=== PATIENT | female | born 1950 | race Caucasian/White ===

== ENCOUNTER 2018-01-04 20:07 | Emergency (ER) | payer MEDICARE, BC ==
[2018-01-04] MEDS ORDERED: ASPIRIN 81 MG CHEWABLE TABLET PO ONE (20:20)
--- NOTE | 2018-01-04 20:21 | Emergency Department Record ---
History of Present Illness - General Chief Complaint: Chest Pain Stated Complaint: CHEST PAIN Time Seen by Provider: 01/04/18 20:20 Source: Patient Mode of Arrival: Ambulatory Limitations: No limitations - History of Present Illness Initial Comments: 67 yo female presents to ED for evaluation of nausea symptoms, epigaztric pain, and chest "pressure" symptoms that began last night. Patient reports a history of STEMI in 06/15, was concerned about recurrent heart attack this evening. Patient reports that her symptoms at that time were different and more severe. Patient reports that her symptoms began after eating last night, reports that her appetite has been down for the past several days as well. Patient denies previous abdominal surgery, reports stents x 3 placed 4 years ago. Patient reports that she is taking plavix as well. Patient took full strength ASA prior to arrival. MD Complaint: Other Onset/Timin -: Hour(s) Onset: After eating Pain Location: Epigastric Pain Radiation: None Severity: Moderate Quality: Sharp, Tightness Consistency: Constant Improves With: Nothing Worsens With: Eating Anginal Symptoms: Nausea Other Symptoms: Burping Treatments Prior to Arrival: Aspirin - Related Data On Oral Contraceptives: No Home Medications Medication Instructions Recorded Confirmed Last Taken Fish Oil/Dha/Epa [Fish Oil 1,200 1,200 mg PO DAILY 01/04/18 01/04/18 Unknown mg Fish Oil] Metformin HCl [Metformin HCl ER] 750 mg PO BID 01/04/18 01/04/18 Unknown Allergies Allergy/AdvReac Type Severity Reaction Status Date / Time No Known Drug Allergies Allergy Unverified 07/03/17 11:38 Review of Systems Constitutional: Denies: Chills, Fever, Malaise, Night sweats Eyes: Denies: Eye discharge, Eye pain ENT: Denies: Congestion, Ear pain Respiratory: Denies: Cough, Dyspnea Cardiovascular: Reports: Chest pain. Denies: Dyspnea on exertion Endocrine: Denies: Fatigue, Heat or cold intolerance Gastrointestinal: Reports: Abdominal pain, Nausea. Denies: Constipation, Vomiting Genitourinary: Denies: Incontinence, Retention Musculoskeletal: Denies: Arthralgia, Back pain, Gout, Joint swelling Skin: Denies: Bruising, Change in color Neurological: Denies: Abnormal gait, Confusion, Headache, Seizure Psychiatric: Denies: Anxiety Hematological/Lymphatic: Denies: Anemia, Blood Clots Past Medical History - SOCIAL HISTORY Smoking Status: Never smoker - RESPIRATORY Hx Respiratory Disorders: No - CARDIOVASCULAR Hx Cardio Disorders: Yes Hx Abnormal EKG: Yes Hx Hypertension: Yes - NEURO Hx Neuro Disorders: No - GI Hx GI Disorders: Yes Hx Hepatitis/Jaundice: Yes (as a child) - Hx Genitourinary Disorders: No - ENDOCRINE Hx Endocrine Disorders: Yes Hx Diabetes: Yes (type II) Hx Thyroid Disease: No - MUSCULOSKELETAL Hx Musculoskeletal Disorders: Yes Hx Arthritis: Yes - PSYCH Hx Psych Problems: No - HEMATOLOGY/ONCOLOGY Hx Hematology/Oncology Disorders: No Family Medical History Hx Heart Disease: Father Hx Stroke: Mother Physical Exam - General General Appearance: Alert, Oriented x3, Cooperative, Moderate distress Limitations: No limitations - Head Head exam: Atraumatic, Normocephalic, Normal inspection Head exam detail: negative: Abrasion, Contusion, Laird's sign, General tenderness, Hematoma, Laceration - Eye Eye exam: Normal appearance. negative: Conjunctival injection, Periorbital swelling, Periorbital tenderness, Scleral icterus - ENT Ear exam: negative: Auricular hematoma, Auricular trauma Nasal Exam: negative: Active bleeding, Discharge, Dried blood, Foreign body Mouth exam: negative: Drooling, Laceration, Tongue elevation - Neck Neck exam: Normal inspection. negative: Meningismus, Tenderness - Respiratory Respiratory exam: Normal lung sounds bilaterally. negative: Rales, Respiratory distress, Rhonchi, Stridor - Cardiovascular Cardiovascular Exam: Regular rate, Normal rhythm, Normal heart sounds - GI/Abdominal GI/Abdominal exam: Soft, Tenderness (TTP epigastric/RUQ regions on examination, no rebound, guarding present.). negative: Rebound, Rigid - Rectal Rectal exam: Deferred - exam: Deferred - Extremities Extremities exam: Normal inspection. negative: Tenderness - Back Back exam: Denies: CVA tenderness (R), CVA tenderness (L) - Neurological Neurological exam: Alert, Normal gait, Oriented X3 - Psychiatric Psychiatric exam: Normal affect, Normal mood - Skin Skin exam: Normal color. negative: Abrasion Type of lesion: negative: abrasion Course - Reevaluation(s) Reevaluation #1: 01/04/18 20:20 EKG: NSR 100 Normal axis, normal intervals No acute ST-T wave changes Previous Inferior wall STEMI 06/30/13 Reevaluation #2: 01/04/18 20:52 Laboratory studies were reviewed and are grossly unremarkable except for Glucose 188. CT imaging is ordered to evaluate for possible cholecystitis as US is nota available at [facility]. Reevaluation #3: 01/04/18 22:50 CT Abdomen/Pelvis: Cholelithiasis without cholecystitis Fatty change liver Patient was updated on all results, recommended transfer for further cardiac evaluation given the patient's history. Patient declines transfer for further cardiac evaluation that is recommended by myself, but is willing to stay for repeat Troponin. Will obtain 3-hour troponin to exclude ACS. Patient reports that her symptoms have resolved as well. Reevaluation #4: 01/04/18 23:53 Repeat Troponin reviewed and is normal. Patient requesting to go home at this time, continues to decline transfer for cardiac evaluation. Will discharge patient home at this time. Medical Decision Making - Lab Data Result diagrams: 01/04/18 20:15 01/04/18 20:15 Disposition Disposition: Discharge Clinical Impression: Epigastric pain Disposition: Home, Self-Care Condition: (2) Stable Instructions: Abdominal Pain (ED) Additional Instructions: Return to ED if your symptoms worsen or if you have any concerns. Follow-up with Dr. Elizondo Saturday without fail. Forms: Patient Portal Access Time of Disposition: 23:54 Quality - Quality Measures Quality Measures: N/A - Blood Pressure Screening Does Patient Have Any of the Following: No Blood Pressure Classification: Hypertensive Reading Systolic Measurement: 198 Diastolic Measurement: 103 Screening for High Blood Pressure: < First Hypertensive BP, F/U Documented > [ G8950] First Hypertensive Follow-up Interventions: Referral to alternative/primary care provider.
[2018-01-04] MEDS ORDERED: ONDANSETRON HCL IV 4 MG/2 ML VIAL IVP ONE (20:26)
[2018-01-04 20:29] LABS: HEMATOCRIT 40.2 % (35.0-47.0); MEAN CELL VOLUME 91.6 fl (81-97); MEAN CORPUSCULAR HEMOGLOBIN 31.9 pg (27-33); MEAN CORPUSCULAR HGB CONC 34.8 g/dl (32-36); MEAN PLATELET VOLUME 10.3 fl (7.4-10.4); PLATELET COUNT 156 K/uL (130-400); RED BLOOD COUNT 4.39 M/uL (3.80-5.40); WHITE BLOOD COUNT W/O DIFF 5.6 K/uL (4.2-12.2)
[2018-01-04] MEDS ORDERED: 0.9 % SODIUM CHLORIDE 1000ML 1,000 ML IV SCH (20:30)
[2018-01-04 20:40] LABS: BLOOD UREA NITROGEN 11 mg/dL (8-23); CREATININE 0.6 mg/dL (0.5-0.9); EST GLOMERULAR FILTRATION RATE > 60 mL/min
[2018-01-04 20:41] LABS: PROTHROMBIN TIME (PATIENT) 10.5 SECONDS (9.5-12.1); TOTAL PROTEIN 7.3 g/dL (6.6-8.7)
[2018-01-04 20:43] LABS: GLUCOSE,RANDOM 188 mg/dL (74-109)
[2018-01-04 20:45] LABS: ALB/GLOB RATIO 1.3 (1.1-1.8); ALBUMIN 4.1 g/dL (4.0-5.0); ALKALINE PHOSPHATASE 88 U/L (35-104); ALT/SGPT 26 U/L (<33); AST/SGOT 38 U/L (10.0-35.0)
[2018-01-04 21:38] LABS: URINE APPEARANCE CLEAR; URINE BILIRUBIN NEGATIVE (NEGATIVE); URINE BLOOD NEGATIVE (NEGATIVE); URINE COLOR YELLOW; URINE GLUCOSE (UA) NEGATIVE (NEGATIVE); URINE KETONE 15 mg/dL (NEGATIVE); URINE LEUKOCYTE ESTERASE NEGATIVE (NEGATIVE); URINE NITRITE NEGATIVE (NEGATIVE); URINE PROTEIN NEGATIVE (NEGATIVE)
--- NOTE | 2018-01-06 09:38 | CT SCAN REPORT ---
EXAM: CT OF THE ABDOMEN AND PELVIS WITH IV CONTRAST HISTORY: ABDOMINAL PAIN AND BLOATING. TECHNIQUE: Helical CT scan of the abdomen and pelvis was obtained after the administration of 100 ml of intravenous Omnipaque 300. No oral contrast administered. Comparison: None. FINDINGS: The lung bases show a 10 mm calcified granuloma in the left lower lobe. The liver is mildly enlarged, 22 cm in length and may have mild low density change. Tiny gallstones are present. No abnormal gallbladder wall thickening or pericholecystic fluid. The common bile duct is not dilated, 3 mm. No intrahepatic biliary ductal dilation. The pancreas has a tiny calcification in the pancreatic head, consistent with prior pancreatitis. There is a small calcification in the left adrenal gland. The right adrenal gland is unremarkable. The spleen and kidneys are unremarkable. 1 cm cyst in the lower pole of the right kidney. No renal calculi or hydronephrosis. Bowel has normal caliber. The appendix is normal. The uterus and ovaries have normal size. The urinary bladder is unremarkable. The bony structures show mild degenerative changes of the spine. IMPRESSION: CHOLELITHIASIS. NO EVIDENCE OF CHOLECYSTITIS. JOB NUMBER: [id number] MTDD
== END 2018-01-05 00:01 | disposition home or self-care (01) ==
LOC: ER 20:07
DX: R10.13 Epigastric pain (principal); R07.89 Other chest pain; K80.20 Calculus of gallbladder without cholecystitis without obstruction; R11.0 Nausea; E11.9 Type 2 diabetes mellitus without complications; I10 Essential (primary) hypertension; I25.2 Old myocardial infarction; Z95.5 Presence of coronary angioplasty implant and graft; Z79.84 Long term (current) use of oral hypoglycemic drugs
CPT/HCPCS: 99284 ×2; 96374; 96361; 83690; 85610; 80053; 81003; 84484; 85027; 74177; 93005; 93010; Q9967; J2405; J7030

== ENCOUNTER 2018-01-06 12:42 | Emergency (ER) | payer BC ==
[2018-01-06] MEDS ORDERED: ONDANSETRON HCL IV 4 MG/2 ML VIAL IV ONE (13:08)
[2018-01-06] MEDS ORDERED: 0.9 % SODIUM CHLORIDE 1,000 ML BAG IV ONE (13:08)
--- NOTE | 2018-01-06 13:16 | Emergency Department Record ---
History of Present Illness - General Chief Complaint: Abdominal Pain Stated Complaint: CANT EAT,ABDOMINAL PAIN Time Seen by Provider: 01/06/18 12:43 Source: Patient Mode of Arrival: Ambulatory Limitations: No limitations - History of Present Illness Initial Comments: The patient is here due to a 3-4 day hx of upper abdominal pain with nausea and intermittent vomiting. She states the AP is mainly in the epigastric area and is sharp and stabbing at times. It is worse after eating usually. The patient now is experiencing early satiety and has a decreased appetite. There is no hx of Cp, SOB, CHESTER, or sweating. She was in the ER 2 days ago and did have a neg abdominal CT and lab work. She did have very small gallstones on the CT but no signs of Cholycystitis. Now she is here for an US as she was directed to do. Complaint: Abdominal pain Onset/Timin -: Days(s) Location: Epigastric, Suprapubic Severity scale (1-10): 6 Improves With: Vomiting Worsens With: Nothing Associated Symptoms: Denies other symptoms - Related Data Patient : No Previous Rx's Medication Instructions Recorded Ondansetron [Zofran Odt] 4 mg SL .Q4-6H PRN #12 tab.rapdis 01/06/18 Allergies Allergy/AdvReac Type Severity Reaction Status Date / Time No Known Drug Allergies Allergy Verified 01/06/18 12:58 Travel Screening - Travel/Exposure Within Last 30 Days Have you traveled within the last 30 days?: No - Travel/Exposure Within Last Year Have you traveled outside the [place] in the last year?: No - Additonal Travel Details Have you been exposed to anyone with a communicable illness?: No - Travel Symptoms Symptom Screening: None Review of Systems Constitutional: Denies: Chills, Fever Eyes: Denies: Eye discharge ENT: Denies: Congestion Respiratory: Denies: Cough, Dyspnea Cardiovascular: Denies: Arrhythmia Endocrine: Denies: Fatigue Gastrointestinal: Reports: Abdominal pain, Nausea, Vomiting. Denies: Diarrhea Genitourinary: Denies: Dysuria Musculoskeletal: Denies: Arthralgia Skin: Denies: Bruising Past Medical History - SOCIAL HISTORY Smoking Status: Never smoker Alcohol Use: None Drug Use: None - RESPIRATORY Hx Respiratory Disorders: No - CARDIOVASCULAR Hx Cardio Disorders: Yes Hx Abnormal EKG: Yes Hx Hypertension: Yes - NEURO Hx Neuro Disorders: No - GI Hx GI Disorders: Yes Hx Hepatitis/Jaundice: Yes (as a child) - Hx Genitourinary Disorders: No - ENDOCRINE Hx Endocrine Disorders: Yes Hx Diabetes: Yes (type II) Hx Thyroid Disease: No - MUSCULOSKELETAL Hx Musculoskeletal Disorders: Yes Hx Arthritis: Yes - PSYCH Hx Psych Problems: No - HEMATOLOGY/ONCOLOGY Hx Hematology/Oncology Disorders: No Family Medical History Any Significant Family History?: No Hx Heart Disease: Father Hx Stroke: Mother Physical Exam - General General Appearance: Alert, Oriented x3, Cooperative, No acute distress - Head Head exam: Atraumatic, Normocephalic, Normal inspection - Eye Eye exam: Normal appearance, PERRL - ENT Throat exam: Normal inspection. negative: Tonsillar erythema, Tonsillar exudate - Neck Neck exam: Normal inspection - Respiratory Respiratory exam: Normal lung sounds bilaterally. negative: Respiratory distress - Cardiovascular Cardiovascular Exam: Regular rate, Normal rhythm, Systolic murmur (2/6 CLIFFORD LLSB. ). negative: Normal heart sounds - GI/Abdominal GI/Abdominal exam: Soft, Normal bowel sounds, Tenderness (There is mild epigastric tenderness.). negative: Distended, Guarding, Hypoactive bowel sounds , Rebound, Rigid - Extremities Extremities exam: Normal inspection, Full ROM, Normal capillary refill. negative: Tenderness - Neurological Neurological exam: Alert, Normal gait. negative: Abnormal gait, Motor sensory deficit - Psychiatric Psychiatric exam: negative: Anxious Course Vital Signs 01/06/18 12:51 Temperature 99.0 F Pulse Rate 88 Respiratory 16 Rate Blood Pressure 132/72 Pulse Ox 94 L - Reevaluation(s) Reevaluation #1: The patient is doing a lot better at this time. Her nausea is gone and she is eating and drinking well with no AP. I did explain the lab and US reports to her and the need for F/U with Dr. Thomson. 01/06/18 14:57 Medical Decision Making - Data Complexity MDM Data: Labs Ordered and/or Reviewed, X-Ray Ordered and/or Reviewed, EKG Ordered and/or Reviewed - Lab Data Result diagrams: 01/06/18 13:56 01/06/18 13:56 Lab Results 01/06/18 Range/Units 12:59 POC Glucose 298 H (70-110) mg/dL - EKG Data -: EKG Interpreted by Me EKG: No Acute Changes, Normal EKG, Unchanged From Previous - Radiology Data Radiology results: Report reviewed (US: gallstones with prob fatty liver.) Disposition Disposition: Discharge Clinical Impression: Epigastric pain Disposition: Home, Self-Care Condition: (2) Stable Instructions: Abdominal Pain (ED) Additional Instructions: Please eat a very bland diet and use the Zofran as needed. Please see Dr. Thomson in the Specialty clinic next week. Return to the ER for any worsening symptoms. Please also see your family doctor to have your liver enzymes rechecked and to have your heart murmur evaluated further. Prescriptions: Ondansetron [Zofran Odt] 4 mg SL .Q4-6H PRN #12 tab.rapdis PRN Reason: Nausea Referrals: [facility] [Provider Group] Forms: Patient Portal Access Time of Disposition: 14:59 Quality - Quality Measures Quality Measures: N/A - Blood Pressure Screening View Details: Yes Does Patient Have Any of the Following: No Blood Pressure Classification: Pre-Hypertensive BP Reading Systolic Measurement: 148 Diastolic Measurement: 82 Screening for High Blood Pressure: < Pre-Hypertensive BP, F/U Documented > [ G8950] Pre-Hypertensive Follow-up Interventions: Referral to alternative/primary care provider.
[2018-01-06 14:02] LABS: HEMATOCRIT 36.9 % (35.0-47.0); HEMOGLOBIN 12.7 gm/dl (11.6-16.0); MEAN CELL VOLUME 91.6 fl (81-97); MEAN CORPUSCULAR HEMOGLOBIN 31.5 pg (27-33); MEAN CORPUSCULAR HGB CONC 34.4 g/dl (32-36); PLATELET COUNT 130 K/uL (130-400); RED BLOOD COUNT 4.03 M/uL (3.80-5.40); WHITE BLOOD COUNT W/O DIFF 4.4 K/uL (4.2-12.2)
[2018-01-06 14:13] LABS: BLOOD UREA NITROGEN 11 mg/dL (8-23); CREATININE 0.6 mg/dL (0.5-0.9); EST GLOMERULAR FILTRATION RATE > 60 mL/min
[2018-01-06 14:14] LABS: TOTAL PROTEIN 6.9 g/dL (6.6-8.7)
[2018-01-06 14:16] LABS: GLUCOSE,RANDOM 282 mg/dL (74-109)
[2018-01-06 14:18] LABS: ALBUMIN 3.6 g/dL (4.0-5.0); ALKALINE PHOSPHATASE 73 U/L (35-104); ALT/SGPT 24 U/L (<33); AST/SGOT 37 U/L (10.0-35.0); BILIRUBIN,DIRECT 0.3 mg/dL (0-0.3); LIPASE 38 U/L (13-60)
--- NOTE | 2018-01-07 12:51 | ULTRASOUND REPORT ---
EXAM: ULTRASOUND OF THE ABDOMEN HISTORY: GALLSTONES. TECHNIQUE: Sonographic evaluation of the abdomen was performed using troy scale imaging. FINDINGS: The liver appears fatty infiltrative. No focal hepatic mass. There is cholelithiasis. There is mild ductal dilatation. The common bile duct measures 7 mm. The spleen measurements are within normal limits. No gross abnormalities within the pancreas. The kidneys are normal in size with no hydronephrosis or nephrolithiasis. The abdominal aorta and inferior vena cava are patent. IMPRESSION: 1. CHOLELITHIASIS. MILD DILATATION OF THE COMMON BILE DUCT MEASURING 7 MM. 2. FATTY INFILTRATION OF THE LIVER. JOB NUMBER: [id number] MTDD
== END 2018-01-06 15:20 | disposition home or self-care (01) ==
LOC: ER 12:42
DX: K80.20 Calculus of gallbladder without cholecystitis without obstruction (principal); R10.13 Epigastric pain; R11.2 Nausea with vomiting, unspecified; E11.9 Type 2 diabetes mellitus without complications; Z79.84 Long term (current) use of oral hypoglycemic drugs; I10 Essential (primary) hypertension
CPT/HCPCS: 36416; 76700; 80048; 80076; 82948; 83690; 84484; 85027; 93005; 93010; 96374; 99284; J2405; J7030

== ENCOUNTER 2018-05-26 10:01 | Day surgery (SDC) | payer MEDICARE, BC ==
[2018-05-26] MEDS ORDERED: LIDOCAINE 2% MDV (20MG/ML) 20ML VIAL IV ONE (10:02)
[2018-05-26] MEDS ORDERED: PROPOFOL 10 MG/ML VIAL IV ONE (10:02)
--- NOTE | 2018-05-27 08:31 | Operative Note ---
DATE OF SURGERY: 05/26/2018 OPERATION: COLONOSCOPY to the cecum with cold snare polypectomy x1. INDICATION: Colorectal cancer screening. The patient's last examination she claims is more than 10 years ago by another physician. At that time, she reports everything looked normal. ANESTHESIA: Intravenous sedation was administered by the department of anesthesiology and included Diprivan titrated to effect. PROCEDURE: Following informed consent from this alert individual including a discussion of the risks and benefits of the procedure and an opportunity for the patient to ask questions, the patient was in the left lateral decubitus position. A digital rectal examination was performed. No abnormalities were noted. Following this, the Olympus HMH546 video colonoscope was inserted into the rectum without resistance. The rectal mucosa had a normal appearance with normal folds and distensibility. The colonoscope was advanced up through the bowel to the level of the cecum without much difficulty. Scattered diverticula were noted in the sigmoid region. No other changes were noted initially. The cecum was well defined by noting the appendiceal orifice and ileocecal valve. The colon preparation was good. From the base of the cecum, the colonoscope was then slowly withdrawn. In the descending colon, there was a 4-5 mm polyp noted which was removed with cold snare polypectomy and suctioned through the colonoscope into a collection trap. Again, a few diverticula were seen in the sigmoid region. No other changes were noted. Retroflexion in the rectum was endoscopic unremarkable. The instrument was straightened and withdrawn. The patient tolerated the procedure well and was returned to the recovery area in stable condition. IMPRESSION: 1. A 4-5 mm descending colon polyp removed with cold snare polypectomy. 2. Sigmoid diverticulosis. RECOMMENDATIONS: Further recommendations will be forthcoming pending results of pathology obtained today. Followup will be with Nikki Dejesus, nurse practitioner. As always, thank you for allowing me to participate in the care of your patient. CC: DOMINIC Ghosh
== END 2018-05-26 12:00 | disposition home or self-care (01) ==
LOC: HOP 10:01
PROVIDERS: ATTEND Internal Medicine Gastroenterology
DX: Z12.11 Encounter for screening for malignant neoplasm of colon (principal); D12.4 Benign neoplasm of descending colon; K57.30 Diverticulosis of large intestine without perforation or abscess without bleeding; I10 Essential (primary) hypertension; E78.00 Pure hypercholesterolemia, unspecified; E11.9 Type 2 diabetes mellitus without complications